=== PATIENT | male | born 1940 | race Caucasian/White ===

== ENCOUNTER → 2025-05-18 | Outpatient (CLI) | payer MEDICARE ==
[~2025-05-18] MED LIST: ACET-683 PO; ALBU8.5H INH; AZIT-12 PO; CHOL10007 PO; DOXY-440 PO; FURO20TA2 PO; GLIP5TAB17 PO; KEPP1TAB PO; LEVO50TA5 PO; METF-838 PO; MUPI2OI NARES; PRED10PA PO; PRED10TA2 PO; PRED20TA PO; PRIL20TA2 PO; SIMV20TA22 PO; SITA50TAB PO; TREL1AER PO; VENTAER INH; vitamin d3 PO
== END ==
LOC: M PLAIMG 13:37
PROVIDERS: ATTEND Internal Medicine Pulmonary Disease
DX: R91.8 Other nonspecific abnormal finding of lung field (principal); J47.9 Bronchiectasis, uncomplicated; J43.9 Emphysema, unspecified; J98.09 Other diseases of bronchus, not elsewhere classified